=== PATIENT | female | born 1955 ===

== ENCOUNTER 2020-03-27 17:20 | Emergency (ER) | payer SELFPAY ==
[2020-03-27 17:29] VITALS: BP 181/102
--- NOTE | 2020-03-27 17:55 | Emergency Department Report ---
Blank Doc - Documentation Documentation: 64-year-old female that presents with first great toe pain and swelling x1 day. Stated has been walking a lot prior to symptoms. fracture vs. strain vs. gout This initial assessment/diagnostic orders/clinical plan/treatment(s) is/are subject to change based on patient's health status, clinical progression and re- assessment by fellow clinical providers in the ED. Further treatment and workup at subsequent clinical providers discretion. Patient/guardians urged not to elope from the ED as their condition may be serious if not clinically assessed and managed. Initial orders include: 1- Patient sent to [facility] for further evaluation and treatment 2- xrays 3- labs
[2020-03-27 18:20] LABS: Basophils % (Auto) 0.6 % (0.0-1.8); Eosinophils % (Auto) 0.7 % (0.0-4.3); Hemoglobin 12.3 gm/dl (10.1-14.3); Lymphocytes # (Auto) 0.9 K/mm3 (1.2-5.4); Lymphocytes % (Auto) 22.1 % (13.4-35.0); Mean Corpuscular HGB Conc 34 % (30-34); Mean Corpuscular Volume 96 fl (79-97); Monocytes # (Auto) 0.3 K/mm3 (0.0-0.8); Monocytes % (Auto) 6.6 % (0.0-7.3); Platelet Count 164 K/mm3 (140-440); Red Blood Count 3.75 M/mm3 (3.65-5.03); Red Cell Distribution Width 15.2 % (13.2-15.2)
--- NOTE | 2020-03-27 18:29 | XRay Report ---
LEFT FOOT, 3 VIEWS INDICATION / CLINICAL INFORMATION: left foot pain and swelling. COMPARISON: None available. FINDINGS: Bones are mildly and diffusely demineralized. No acute fracture or dislocation is noted. Minimal dege nerative changes are present throughout the foot, age appropriate. Very small plantar calcaneal spur is noted. Soft tissue swelling is seen adjacent to the great toe MTP joint. IMPRESSION: Soft tissue swelling is noted in the region of the great toe MTP joint. No other acute fi nding identified. Signer Name: Nisreen Guillen MD Signed: 03/27/2020 6:25 PM Workstation Name: [id number]
--- NOTE | 2020-03-27 18:38 | Emergency Department Report ---
ED Lower Extremity HPI - General Chief Complaint: Extremity Injury, Lower Stated Complaint: FOOT PAIN Time Seen by Provider: 03/27/20 17:48 Source: patient Mode of arrival: Wheelchair Limitations: No Limitations - History of Present Illness Initial Comments: This is a 64-year-old female nontoxic, well nourished in appearance, no acute signs of distress presents to the ED with c/o of right great toe pain and swelling. Patient denies any new trauma or injuries. Denies decreased ROM, redness, or abnormal gait. Denies any fever, chills, nausea, vomiting, headache, stiff neck, chest pain or shortness of breath. Patient denies any numbness or tingling. Denies any allergies. MD Complaint: other (right great toe) -: days(s) Injury: Toes: Right Severity: mild Severity scale (0 -10): 8 Improves With: immobilization Worsens With: weight bearing, movement, palpation Associated Symptoms: swelling, able to partially bear weight, ambulatory. denies: snap/pop sensation, numbness, tingling, unable to bear weight - Related Data Previous Rx's Medication Instructions Recorded Last Taken Type Colchicine 0.6 mg PO BID PRN #10 capsule 03/27/20 Unknown Rx Allergies Allergy/AdvReac Type Severity Reaction Status Date / Time No Known Allergies Allergy Unverified 03/27/20 17:24 ED Review of Systems ROS: Stated complaint: FOOT PAIN Other details as noted in HPI Constitutional: denies: chills, fever Eyes: denies: eye pain, eye discharge, vision change ENT: denies: ear pain, throat pain Respiratory: denies: cough, shortness of breath, wheezing Cardiovascular: denies: chest pain, palpitations Endocrine: no symptoms reported Gastrointestinal: denies: abdominal pain, nausea, diarrhea Genitourinary: denies: urgency, dysuria, discharge Musculoskeletal: denies: back pain, joint swelling, arthralgia Skin: denies: rash, lesions Neurological: denies: headache, weakness, paresthesias Psychiatric: denies: anxiety, depression Hematological/Lymphatic: denies: easy bleeding, easy bruising ED Past Medical Hx - Past Medical History Previous Medical History?: No Hx of Cancer: Yes - Surgical History Additional Surgical History: HYSTO - Social History Smoking Status: Never Smoker Substance Use Type: None - Medications Home Medications: Home Medications Medication Instructions Recorded Confirmed Last Taken Type Colchicine 0.6 mg PO BID PRN #10 capsule 03/27/20 Unknown Rx ED Physical Exam - General Limitations: No Limitations General appearance: alert, in no apparent distress - Head Head exam: Present: atraumatic, normocephalic - Neck Neck exam: Present: normal inspection, full ROM. Absent: tenderness, meningismus, lymphadenopathy - Extremities Exam Extremities exam: Present: normal inspection, full ROM, tenderness, normal capillary refill, joint swelling. Absent: calf tenderness - Expanded Lower Extremity Exam Right Hip exam: Present: normal inspection, full ROM. Absent: tenderness, swelling Upper Leg exam: Present: normal inspection, full ROM. Absent: tenderness, swelling Knee exam: Present: normal inspection, full ROM. Absent: tenderness, swelling Lower Leg exam: Present: normal inspection, full ROM. Absent: tenderness, swelling Ankle exam: Present: normal inspection, full ROM. Absent: tenderness, swelling Foot/Toe exam: Present: normal inspection, full ROM, tenderness, swelling. Absent: abrasion, laceration, ecchymosis, deformity, crepidus, dislocation, erythema, amputation, puncture wound, foreign body, calcaneal tenderness, tende rness at base of 5th metatarsal, nail avulsion, subungual hematoma Neuro vascular tendon exam: Present: no vascular compromise Gait: Positive: observed and limited by pain - Back Exam Back exam: Present: normal inspection, full ROM - Neurological Exam Neurological exam: Present: alert, oriented X3, normal gait - Psychiatric Psychiatric exam: Present: normal affect, normal mood - Skin Skin exam: Present: warm, dry, intact, normal color. Absent: rash ED Course Vital Signs 03/27/20 17:28 Temperature 98.7 F Pulse Rate 88 Respiratory 20 Rate Blood Pressure 181/102 O2 Sat by Pulse 99 Oximetry - Reevaluation(s) Reevaluation #1: 03/27/20 18:37 Patient is speaking in full sentences with no signs of distress noted. ED Lower Extremity MDM - Lab Data Result diagrams: 03/27/20 17:54 Lab Results 03/27/20 03/27/20 Range/Units 17:54 17:54 WBC 4.1 L (4.5-11.0) K/mm3 RBC 3.75 (3.65-5.03) M/mm3 Hgb 12.3 (10.1-14.3) gm/dl Hct 36.0 (30.3-42.9) % MCV 96 (79-97) fl MCH 33 H (28-32) pg MCHC 34 (30-34) % RDW 15.2 (13.2-15.2) % Plt Count 164 (140-440) K/mm3 Lymph % (Auto) 22.1 (13.4-35.0) % Citrus % (Auto) 6.6 (0.0-7.3) % Eos % (Auto) 0.7 (0.0-4.3) % Baso % (Auto) 0.6 (0.0-1.8) % Lymph # 0.9 L (1.2-5.4) K/mm3 Citrus # 0.3 (0.0-0.8) K/mm3 Eos # 0.0 (0.0-0.4) K/mm3 Baso # 0.0 (0.0-0.1) K/mm3 Seg Neutrophils % 70.0 (40.0-70.0) % Seg Neutrophils # 2.9 (1.8-7.7) K/mm3 Uric Acid 7.8 H (3.5-7.6) mg/dL - Radiology Data Referring Physician: SINA GRIGGS Patient Name: KENYATTA MCKAY Date of : 1955 Sex: Female Report Date: 2020-03-27 Report Status: [place] [address] XRay Report Signed Patient: KENYATTA MCKAY MR#: [id number] 1864 : 1955 Acct:[id number] Age/Sex: 64 / F ADM Date: 03/27/20 Loc: ED Attending Dr: Ordering Physician: SINA GRIGGS NP Date of Service: 03/27/20 Procedure(s): XR foot 3+V LT Accession Number(s): [id number] cc: SINA GRIGGS NP Fluoro Time In Minutes: LEFT FOOT, 3 VIEWS INDICATION / CLINICAL INFORMATION: left foot pain and swelling. COMPARISON: None available. FINDINGS: Bones are mildly and diffusely demineralized. No acute fracture or dislocation is noted. Minimal degenerative changes are present throughout the foot, age appropriate. Very small plantar calcaneal spur is noted. Soft tissue swelling is seen adjacent to the great toe MTP joint. IMPRESSION: Soft tissue swelling is noted in the region of the great toe MTP joint. No other acute finding identified. Signer Name: Nisreen Guillen MD Signed: 03/27/2020 6:25 PM Workstation Name: [id number] Transcribed By: Dictated By: Nisreen Guillen MD Electronically Authenticated By: Nisreen Guillen MD Signed Date/Time: 03/27/201824 DD/ 22 TD/TT: - Medical Decision Making This is a 64-year-old female that presents with gout. Patient is stable and was examined by me. No signs of septic joint. Patient was instructed to Follow-up with a orthopedic doctor in 3-5 days or if symptoms worsen and continue return to emergency room as soon as possible. At time of discharge, the patient does not seem toxic or ill in appearance. No acute signs of distress noted. Patient agrees to discharge treatment plan of care. No further questions noted by the patient. Critical care attestation.: If time is entered above; I have spent that time in minutes in the direct care of this critically ill patient, excluding procedure time. ED Disposition Clinical Impression: Gouty arthritis of right great toe Disposition: DC-01 TO HOME OR SELFCARE Is pt being admited?: No Does the pt Need Aspirin: No Condition: Stable Instructions: Acute Gouty Arthritis (ED) Additional Instructions: Follow-up with a orthopedic doctor in 3-5 days or if symptoms worsen and continue return to emergency room as soon as possible. Prescriptions: Colchicine 0.6 mg PO BID PRN #10 capsule PRN Reason: gout Referrals: PRIMARY [facility]EMD [Referring] - 3-5 Days AMERICA SOMERS MD [Staff Physician] - 3-5 Days
[2020-03-27] MEDS ORDERED: dexAMETHasone 20 MG/5 ML VIAL IM ONE (18:49)
[2020-03-27] MEDS ORDERED: COLCHICINE 0.6 MG CAP PO ONE (18:49)
== END 2020-03-27 19:12 | disposition home or self-care (01) ==
LOC: ED 17:20
DX: M10.9 Gout, unspecified (principal); Z79.899 Other long term (current) drug therapy; Z98.890 Other specified postprocedural states
CPT/HCPCS: 36415; 73630; 84550; 85025; 96372; 99284; J1100

== ENCOUNTER 2022-04-15 14:53 | Emergency (ER) | payer SELFPAY ==
[2022-04-15 16:02] VITALS: BP 148/93
== END 2022-04-15 19:01 | disposition left against medical advice (07) ==
LOC: ED 14:53
DX: R11.2 Nausea with vomiting, unspecified (principal); Z53.21 Procedure and treatment not carried out due to patient leaving prior to being seen by health care provider; R19.7 Diarrhea, unspecified